=== PATIENT | male | born 1955 | race Caucasian/White ===

== ENCOUNTER 2023-09-07 13:53 | Outpatient (CLI) | payer MEDICARE | END 2023-09-07 13:54 | disposition home or self-care (01) | LOC: CSHWCC 13:53 | PROVIDERS: ATTEND Physician Assistant | DX: T82.7XXS Infection and inflammatory reaction due to other cardiac and vascular devices, implants and grafts, sequela (principal); L97.125 Non-pressure chronic ulcer of left thigh with muscle involvement without evidence of necrosis; I73.9 Peripheral vascular disease, unspecified | CPT/HCPCS: 97605; G0463; 99214 ==

== ENCOUNTER 2023-09-10 15:58 | Outpatient (CLI) | payer MEDICARE | END 2023-09-10 15:59 | disposition home or self-care (01) | LOC: CSHWCC 15:58 | PROVIDERS: ATTEND Physician Assistant | DX: T82.7XXS Infection and inflammatory reaction due to other cardiac and vascular devices, implants and grafts, sequela (principal); L97.125 Non-pressure chronic ulcer of left thigh with muscle involvement without evidence of necrosis; I73.9 Peripheral vascular disease, unspecified | CPT/HCPCS: 99211; G0463 ==

== ENCOUNTER 2023-09-11 13:04 | Outpatient (CLI) | payer MEDICARE | END 2023-09-11 13:05 | disposition home or self-care (01) | LOC: CSHWCC 13:04 | PROVIDERS: ATTEND Physician Assistant | DX: L97.125 Non-pressure chronic ulcer of left thigh with muscle involvement without evidence of necrosis (principal); T82.7XXS Infection and inflammatory reaction due to other cardiac and vascular devices, implants and grafts, sequela; I73.9 Peripheral vascular disease, unspecified | CPT/HCPCS: 97605 ==

== ENCOUNTER 2023-09-15 15:21 | Outpatient (CLI) | payer MEDICARE | END 2023-09-15 15:22 | disposition home or self-care (01) | LOC: CSHWCC 15:21 | PROVIDERS: ATTEND Physician Assistant | DX: T82.7XXS Infection and inflammatory reaction due to other cardiac and vascular devices, implants and grafts, sequela (principal); L97.125 Non-pressure chronic ulcer of left thigh with muscle involvement without evidence of necrosis; I73.9 Peripheral vascular disease, unspecified | CPT/HCPCS: 97605 ==

== ENCOUNTER 2023-09-18 12:32 | Outpatient (CLI) | payer MEDICARE | END 2023-09-18 12:33 | disposition home or self-care (01) | LOC: CSHWCC 12:32 | PROVIDERS: ATTEND Nurse Practitioner Family | DX: T82.7XXS Infection and inflammatory reaction due to other cardiac and vascular devices, implants and grafts, sequela (principal); L97.125 Non-pressure chronic ulcer of left thigh with muscle involvement without evidence of necrosis; I73.9 Peripheral vascular disease, unspecified | CPT/HCPCS: 97605 ==

== ENCOUNTER 2023-09-23 11:03 | Outpatient (CLI) | payer MEDICARE | END 2023-09-23 11:04 | disposition home or self-care (01) | LOC: CSHWCC 11:03 | PROVIDERS: ATTEND Nurse Practitioner Family | DX: T82.7XXS Infection and inflammatory reaction due to other cardiac and vascular devices, implants and grafts, sequela (principal); L97.125 Non-pressure chronic ulcer of left thigh with muscle involvement without evidence of necrosis; I73.9 Peripheral vascular disease, unspecified | CPT/HCPCS: 99213; G0463 ==

== ENCOUNTER 2023-09-29 13:18 | Outpatient (CLI) | payer MEDICARE | END 2023-09-29 13:19 | disposition home or self-care (01) | LOC: CSHWCC 13:18 | PROVIDERS: ATTEND Nurse Practitioner Family | DX: T82.7XXS Infection and inflammatory reaction due to other cardiac and vascular devices, implants and grafts, sequela (principal); L97.125 Non-pressure chronic ulcer of left thigh with muscle involvement without evidence of necrosis; I73.9 Peripheral vascular disease, unspecified | CPT/HCPCS: 11042 ==

== ENCOUNTER 2023-10-06 14:56 | Outpatient (CLI) | payer MEDICARE | END 2023-10-06 14:57 | disposition home or self-care (01) | LOC: CSHWCC 14:56 | PROVIDERS: ATTEND Nurse Practitioner Family | DX: L97.125 Non-pressure chronic ulcer of left thigh with muscle involvement without evidence of necrosis (principal); T82.7XXS Infection and inflammatory reaction due to other cardiac and vascular devices, implants and grafts, sequela; I73.9 Peripheral vascular disease, unspecified; Z72.0 Tobacco use | CPT/HCPCS: 11042; 97605 ==

== ENCOUNTER 2023-10-13 10:54 | Outpatient (CLI) | payer MEDICARE | END 2023-10-13 10:55 | disposition home or self-care (01) | LOC: CSHWCC 10:54 | PROVIDERS: ATTEND Nurse Practitioner Family | DX: I73.9 Peripheral vascular disease, unspecified (principal); L97.125 Non-pressure chronic ulcer of left thigh with muscle involvement without evidence of necrosis; T82.7XXS Infection and inflammatory reaction due to other cardiac and vascular devices, implants and grafts, sequela; Z72.0 Tobacco use | CPT/HCPCS: 11042 ==

== ENCOUNTER 2023-10-20 15:37 | Outpatient (CLI) | payer MEDICARE | END 2023-10-20 15:38 | disposition home or self-care (01) | LOC: CSHWCC 15:37 | PROVIDERS: ATTEND Nurse Practitioner Family | DX: T82.7XXS Infection and inflammatory reaction due to other cardiac and vascular devices, implants and grafts, sequela (principal); L97.125 Non-pressure chronic ulcer of left thigh with muscle involvement without evidence of necrosis; I73.9 Peripheral vascular disease, unspecified; Z72.0 Tobacco use | CPT/HCPCS: 11042; 87070; 87077; 87186; 87205 ==

== ENCOUNTER 2023-12-22 14:00 | Outpatient (CLI) | payer MEDICARE | END 2023-12-22 14:01 | disposition home or self-care (01) | LOC: CSHWCC 14:00 | PROVIDERS: ATTEND Nurse Practitioner Family | DX: I87.312 Chronic venous hypertension (idiopathic) with ulcer of left lower extremity (principal); L97.125 Non-pressure chronic ulcer of left thigh with muscle involvement without evidence of necrosis; L97.521 Non-pressure chronic ulcer of other part of left foot limited to breakdown of skin; I73.9 Peripheral vascular disease, unspecified; T82.7XXS Infection and inflammatory reaction due to other cardiac and vascular devices, implants and grafts, sequela; Z72.0 Tobacco use | CPT/HCPCS: 11042 ==

== ENCOUNTER 2024-01-05 15:14 | Outpatient (CLI) | payer MEDICARE | END 2024-01-05 15:15 | disposition home or self-care (01) | LOC: CSHWCC 15:14 | PROVIDERS: ATTEND Nurse Practitioner Family | DX: T82.7XXS Infection and inflammatory reaction due to other cardiac and vascular devices, implants and grafts, sequela (principal); I87.312 Chronic venous hypertension (idiopathic) with ulcer of left lower extremity; L97.125 Non-pressure chronic ulcer of left thigh with muscle involvement without evidence of necrosis; L97.521 Non-pressure chronic ulcer of other part of left foot limited to breakdown of skin; I73.9 Peripheral vascular disease, unspecified; Z72.0 Tobacco use | CPT/HCPCS: 11042; 97597 ==

== ENCOUNTER 2024-01-06 15:06 | Outpatient (CLI) | payer MEDICARE | END 2024-01-06 15:07 | disposition home or self-care (01) | LOC: CSHRAD 15:06 | PROVIDERS: ATTEND Nurse Practitioner Family | DX: I87.312 Chronic venous hypertension (idiopathic) with ulcer of left lower extremity (principal); L97.125 Non-pressure chronic ulcer of left thigh with muscle involvement without evidence of necrosis; L97.521 Non-pressure chronic ulcer of other part of left foot limited to breakdown of skin; T82.7XXS Infection and inflammatory reaction due to other cardiac and vascular devices, implants and grafts, sequela; I73.9 Peripheral vascular disease, unspecified; Z72.0 Tobacco use; M79.9 Soft tissue disorder, unspecified ==

== ENCOUNTER 2024-01-20 16:07 | Outpatient (CLI) | payer MEDICARE | END 2024-01-20 16:08 | disposition home or self-care (01) | LOC: CSHWCC 16:07 | PROVIDERS: ATTEND Nurse Practitioner Family | DX: I87.312 Chronic venous hypertension (idiopathic) with ulcer of left lower extremity (principal); L97.125 Non-pressure chronic ulcer of left thigh with muscle involvement without evidence of necrosis; L97.521 Non-pressure chronic ulcer of other part of left foot limited to breakdown of skin; T82.7XXS Infection and inflammatory reaction due to other cardiac and vascular devices, implants and grafts, sequela; I73.9 Peripheral vascular disease, unspecified; Z72.0 Tobacco use | CPT/HCPCS: 87070; 87077; 87186; 87205; G0463; 99213 ==

== ENCOUNTER 2024-01-26 09:10 | Outpatient (CLI) | payer MEDICARE | END 2024-01-26 09:11 | disposition home or self-care (01) | LOC: CSHCT 09:10 | PROVIDERS: ATTEND Internal Medicine Cardiovascular Disease | DX: L97.529 Non-pressure chronic ulcer of other part of left foot with unspecified severity (principal); I73.9 Peripheral vascular disease, unspecified | CPT/HCPCS: 82565 ==

== ENCOUNTER 2024-01-27 15:56 | Outpatient (CLI) | payer MEDICARE | END 2024-01-27 15:57 | disposition home or self-care (01) | LOC: CSHWCC 15:56 | PROVIDERS: ATTEND Nurse Practitioner Family | DX: I87.312 Chronic venous hypertension (idiopathic) with ulcer of left lower extremity (principal); L97.125 Non-pressure chronic ulcer of left thigh with muscle involvement without evidence of necrosis; L97.521 Non-pressure chronic ulcer of other part of left foot limited to breakdown of skin; T82.7XXS Infection and inflammatory reaction due to other cardiac and vascular devices, implants and grafts, sequela; I73.9 Peripheral vascular disease, unspecified; Z72.0 Tobacco use | CPT/HCPCS: 99213; G0463 ==

== ENCOUNTER 2024-02-03 16:03 | Outpatient (CLI) | payer MEDICARE | END 2024-02-03 16:04 | disposition home or self-care (01) | LOC: CSHWCC 16:03 | PROVIDERS: ATTEND Nurse Practitioner Family | DX: I87.312 Chronic venous hypertension (idiopathic) with ulcer of left lower extremity (principal); T82.7XXS Infection and inflammatory reaction due to other cardiac and vascular devices, implants and grafts, sequela; L97.125 Non-pressure chronic ulcer of left thigh with muscle involvement without evidence of necrosis; L97.521 Non-pressure chronic ulcer of other part of left foot limited to breakdown of skin; I73.9 Peripheral vascular disease, unspecified; Z72.0 Tobacco use | CPT/HCPCS: 99213; G0463 ==

== ENCOUNTER 2024-02-10 14:58 | Outpatient (CLI) | payer MEDICARE | END 2024-02-10 14:59 | disposition home or self-care (01) | LOC: CSHWCC 14:58 | PROVIDERS: ATTEND Nurse Practitioner Family | DX: T82.7XXS Infection and inflammatory reaction due to other cardiac and vascular devices, implants and grafts, sequela (principal); I70.362 Atherosclerosis of unspecified type of bypass graft(s) of the extremities with gangrene, left leg; I87.312 Chronic venous hypertension (idiopathic) with ulcer of left lower extremity; L97.125 Non-pressure chronic ulcer of left thigh with muscle involvement without evidence of necrosis; L97.521 Non-pressure chronic ulcer of other part of left foot limited to breakdown of skin; Z72.0 Tobacco use | CPT/HCPCS: 99215; G0463 ==

== ENCOUNTER 2024-03-03 15:35 | Outpatient (CLI) | payer MEDICARE | END 2024-03-03 15:36 | disposition home or self-care (01) | LOC: CSHWCC 15:35 | PROVIDERS: ATTEND Nurse Practitioner Family | DX: I87.313 Chronic venous hypertension (idiopathic) with ulcer of bilateral lower extremity (principal); L97.125 Non-pressure chronic ulcer of left thigh with muscle involvement without evidence of necrosis; L97.521 Non-pressure chronic ulcer of other part of left foot limited to breakdown of skin; I70.362 Atherosclerosis of unspecified type of bypass graft(s) of the extremities with gangrene, left leg; T82.7XXS Infection and inflammatory reaction due to other cardiac and vascular devices, implants and grafts, sequela; Z72.0 Tobacco use | CPT/HCPCS: 99215; G0463 ==

== ENCOUNTER 2024-06-22 13:29 | Outpatient (CLI) | payer MEDICARE | END 2024-06-22 13:30 | disposition home or self-care (01) | LOC: CSHWCC 13:29 | PROVIDERS: ATTEND Nurse Practitioner Family | DX: L97.222 Non-pressure chronic ulcer of left calf with fat layer exposed (principal); I70.242 Atherosclerosis of native arteries of left leg with ulceration of calf; Z72.0 Tobacco use; Z89.512 Acquired absence of left leg below knee | CPT/HCPCS: 99214; G0463 ==

== ENCOUNTER 2024-06-30 15:56 | Outpatient (CLI) | payer MEDICARE | END 2024-06-30 15:57 | disposition home or self-care (01) | LOC: CSHWCC 15:56 | PROVIDERS: ATTEND Nurse Practitioner Family | DX: L97.222 Non-pressure chronic ulcer of left calf with fat layer exposed (principal); I70.242 Atherosclerosis of native arteries of left leg with ulceration of calf; Z72.0 Tobacco use; Z89.512 Acquired absence of left leg below knee | CPT/HCPCS: 97597; 97598 ==

== ENCOUNTER 2024-07-06 15:20 | Outpatient (CLI) | payer MEDICARE | END 2024-07-06 15:21 | disposition home or self-care (01) | LOC: CSHWCC 15:20 | PROVIDERS: ATTEND Nurse Practitioner Family | DX: I70.242 Atherosclerosis of native arteries of left leg with ulceration of calf (principal); L97.222 Non-pressure chronic ulcer of left calf with fat layer exposed; Z72.0 Tobacco use; Z89.512 Acquired absence of left leg below knee | CPT/HCPCS: 97597; 97598 ==

== ENCOUNTER 2024-07-20 15:38 | Outpatient (CLI) | payer MEDICARE | END 2024-07-20 15:39 | disposition home or self-care (01) | LOC: CSHWCC 15:38 | PROVIDERS: ATTEND Nurse Practitioner Family | DX: L89.893 Pressure ulcer of other site, stage 3 (principal); I70.242 Atherosclerosis of native arteries of left leg with ulceration of calf; L97.222 Non-pressure chronic ulcer of left calf with fat layer exposed; Z89.512 Acquired absence of left leg below knee; Z72.0 Tobacco use | CPT/HCPCS: 11042; 11045 ==

== ENCOUNTER 2024-07-27 15:40 | Outpatient (CLI) | payer MEDICARE | END 2024-07-27 15:41 | disposition home or self-care (01) | LOC: CSHWCC 15:40 | PROVIDERS: ATTEND Nurse Practitioner Family | DX: L89.893 Pressure ulcer of other site, stage 3 (principal); I70.242 Atherosclerosis of native arteries of left leg with ulceration of calf; L97.222 Non-pressure chronic ulcer of left calf with fat layer exposed; Z89.512 Acquired absence of left leg below knee; Z72.0 Tobacco use | CPT/HCPCS: 97597 ==

== ENCOUNTER 2024-08-03 14:50 | Outpatient (CLI) | payer MEDICARE | END 2024-08-03 14:51 | disposition home or self-care (01) | LOC: CSHWCC 14:50 | PROVIDERS: ATTEND Nurse Practitioner Family | DX: L89.893 Pressure ulcer of other site, stage 3 (principal); L97.222 Non-pressure chronic ulcer of left calf with fat layer exposed; I70.242 Atherosclerosis of native arteries of left leg with ulceration of calf; I73.9 Peripheral vascular disease, unspecified; Z89.512 Acquired absence of left leg below knee; Z72.0 Tobacco use | CPT/HCPCS: 11042 ==